=== PATIENT | male | born 1945 ===

== ENCOUNTER → 2017-09-28 | Outpatient (CLI) | payer MEDICARE | END | disposition home or self-care (01) | LOC: CFH 08:04 | DX: I65.23 Occlusion and stenosis of bilateral carotid arteries (principal); Z87.891 Personal history of nicotine dependence; Z86.73 Personal history of transient ischemic attack (TIA), and cerebral infarction without residual deficits; Z82.3 Family history of stroke | CPT/HCPCS: 93880; 93978 ==

== ENCOUNTER → 2019-10-31 | Outpatient (CLI) | payer MEDICARE ==
[~2019-10-31] MED LIST: LIDOCAINE-MPF 1%, 5ML ONE
== END | disposition home or self-care (01) ==
LOC: RAD 12:17
PROVIDERS: ATTEND Internal Medicine
DX: E04.2 Nontoxic multinodular goiter (principal)
CPT/HCPCS: 10005; 88173